=== PATIENT | female | born 1985 | race Caucasian/White ===

== ENCOUNTER → 2017-01-13 | Outpatient (CLI) | payer BC ==
[~2017-01-13] MED LIST: CLR10 PO; DLSUDL60; MTR600X PO; PEDICHW50 PO
== END | disposition home or self-care (01) ==
LOC: C.PAPS 15:22
PROVIDERS: ATTEND Obstetrics & Gynecology
DX: Z01.419 Encounter for gynecological examination (general) (routine) without abnormal findings (principal)

== ENCOUNTER → 2017-03-16 | Outpatient (CLI) | payer BC | END | disposition home or self-care (01) | LOC: C.PAPS 08:33 | PROVIDERS: ATTEND Obstetrics & Gynecology | DX: R87.820 Cervical low risk human papillomavirus (HPV) DNA test positive (principal); R87.612 Low grade squamous intraepithelial lesion on cytologic smear of cervix (LGSIL) ==

== ENCOUNTER → 2017-05-26 | Outpatient (CLI) | payer BC ==
--- NOTE | 2017-05-26 12:45 | DIAGNOSTIC IMAGING REPORT ---
LEFT FOOT 3 VIEWS CLINICAL HISTORY: Left foot pain. No reported history of trauma. FINDINGS: 3 views of the left foot are obtained. No prior studies are available for comparison at the time of dictation. The skeletal structures are well mineralized. No fracture is seen. The joint spaces of the foot are well-maintained. There are tiny dorsal and plantar calcaneal enthesophytes. An os trigonum is incidentally noted. The overlying soft tissues are within normal limits. IMPRESSION: 1. No acute bony abnormality is seen in the left foot. 2. Tiny heel spurs. Electronically signed by: Tapan Peter M.D. 05/26/2017 12:44 PM Dictated Date/Time: 05/26/2017 12:44 PM
== END | disposition home or self-care (01) ==
LOC: C.RADBC 11:07
PROVIDERS: ATTEND Family Medicine
DX: M79.672 Pain in left foot (principal); M77.32 Calcaneal spur, left foot